=== PATIENT | female | born 1965 | race Two or more races ===

== ENCOUNTER 2018-12-30 16:52 | Inpatient (IN) | payer OTHER ==
[~2018-12-30] VITALS: Ht 152.4 cm; Wt 40.3 kg
[~2018-12-30 16:52] MED LIST: HYDR-3240 PO; INSU100C5 SQ; NABU500T PO; PREG50CA PO; ROSU10TA PO
--- NOTE | 2018-12-30 17:10 | NUR ---
PT A&OX4, RESP EVEN & UNLABORED, SPEECH CLEAR, SKIN WNL. C/O ABD + VOMITING COFFEE GROUND EMESIS. 200ML DARK ROSALES FLUID IN EMESIS BAG UPON ARRIVAL TO ED ROOM 26. PT REPORTS INTERMITTENT VOMITING FOR ABOUT 2 MONTHS; HAS SEEN GI DOCTOR. ENDOSCOPY & COLONOSCOPY "A COUPLE OF YEARS AGO".
--- NOTE | 2018-12-30 18:09 | NUR ---
DR MYERS BS FOR EXAM
[2018-12-30 18:27] LABS: GASTRIC OCCULT BLD POSITIVE (NEGATIVE); GASTRIC PH 2 (1-7)
[2018-12-30] MEDS ORDERED: SODIUM CHLORIDE FLUSH 10ML SYR IVF ONE (18:30)
[2018-12-30 18:31] LABS: BASOPHILS # (AUTO) 0.01 x10^3/uL (0-0.1); BASOPHILS % (AUTO) 0 % (0-1); EOSINOPHILS # (AUTO) 0.01 x10^3/uL (0-0.4); EOSINOPHILS % (AUTO) 0 % (1-7); LYMPHOCYTES # (AUTO) 1.36 x10^3/uL (1-3.4); LYMPHOCYTES % (AUTO) 10 % (22-44); MD NO; MEAN CORPUSCULAR HEMOGLOBIN 29.1 pg (27.0-34.8); MEAN CORPUSCULAR HGB CONC 33.4 g/dL (32.4-35.8); MEAN CORPUSCULAR VOLUME 87.2 fL (80-100); MEAN PLATELET VOLUME 7.2 fL (7.4-10.4); MONOCYTES # (AUTO) 0.13 x10^3/uL (0.2-0.8); MONOCYTES % (AUTO) 1 % (2-9); NEUTROPHILS # (AUTO) 11.79 x10^3/uL (1.8-6.8); NEUTROPHILS % (AUTO) 89 % (42-75); PLATELET COUNT 507 x10^3/uL (130-400); RED CELL DISTRIBUTION WIDTH 15.2 % (9.6-15.2)
[2018-12-30 18:42] LABS: INTERNATIONAL NORMALIZED RATIO 0.94 (0.93-1.1)
[2018-12-30 18:43] LABS: ALANINE AMINOTRANSFERASE 14 U/L (12-78); ALBUMIN 3.7 g/dL (3.4-5.0); ANION GAP 10 mmol/L (5-15); CALCIUM 9.1 mg/dL (8.5-10.1); CHLORIDE 104 mmol/L (98-107); CREATININE 0.53 mg/dL (0.55-1.02)
--- NOTE | 2018-12-30 18:43 | NUR ---
TASK RN: PT BACK FROM IMAGING.
[2018-12-30 18:45] LABS: ALKALINE PHOSPHATASE 147 U/L (45-117); BILIRUBIN,TOTAL 0.4 mg/dL (0.2-1.0); TOTAL PROTEIN 7.7 g/dL (6.4-8.2)
[2018-12-30] MEDS ORDERED: PANTOPRAZOLE 80 MG in SODIUM CHLORIDE 0.9% 50 ML IVPB ONE (18:49)
--- NOTE | 2018-12-30 18:59 | NUR ---
PT REPORT FROM KIMBERLEE BEEBE. PT CARE TO BE ASSUMED.
[2018-12-30] MEDS ORDERED: ONDANSETRON 2MG/ML, 2ML IVPush ONE (19:00)
--- NOTE | 2018-12-30 19:01 | NUR ---
TASK RN: BEDSIDE REPORT TO KIMBERLEE KASPER.
[2018-12-30] MEDS ORDERED: ONDANSETRON 2MG/ML, 2ML ONE (19:09)
--- NOTE | 2018-12-30 20:30 | NUR ---
TASK RN: THIS RN ANSWERED CALL LIGHT. PT REQUESTING WHEELCHAIR FOR TRANSPORT TO BATHROOM. PT DENIES DIZZINESS, REPORTS SOME NAUSEA. PT TRANSFERED SELF TO OWN WHEELCHAIR. PT TO RESTROOM WO ASSISTANCE. BED LINENS NOTABLY SOILED, REMOVED AND CLEAN LINENS PLACED. ALL USED EMESIS BAGS DISPOSED OF. PRIMARY RN, SANAM SUNG.
[2018-12-30] MEDS ORDERED: OXYcodone IR 5MG TABLET PO PRN (21:00)
[2018-12-30] MEDS ORDERED: ONDANSETRON ODT 4 MG PO PRN (21:00)
[2018-12-30] MEDS ORDERED: ONDANSETRON 2MG/ML, 2ML IVPush PRN (21:00)
[2018-12-30] MEDS ORDERED: hydrALAzine 20 MG/ML, 1ML IVPush PRN (21:00)
[2018-12-30] MEDS ORDERED: BISACODYL 10 MG SUPP PR PRN (21:00)
[2018-12-30] MEDS ORDERED: DOCUSATE 100 MG CAPSULE PO PRN (21:00)
[2018-12-30] MEDS ORDERED: PROMETHAZINE 25 MG/ML, 1ML IM PRN (21:00)
--- NOTE | 2018-12-30 21:17 | NUR ---
PT REPORT TO KIMBERLEE FERRERA FOR ROOM [id number]
[2018-12-30 21:21] LABS: HEMOGLOBIN A1C 13.3 % (4.2-6.3)
[2018-12-30] MEDS: SODIUM CHLORIDE 0.9% 1,000 ML IV SCH (21:26)
[2018-12-30] MEDS ORDERED: DILTIAZEM 5 MG/ML, 5ML IVPush ONE (21:30)
[2018-12-30 21:32] LABS: FREE T4 (FREE THYROXINE) 1.37 ng/dL (0.76-1.46); THYROID STIMULATING HORMONE 1.18 mIU/L (0.358-3.740)
[2018-12-30] MEDS: morphine SULFATE 10 MG/ML, 1ML IVPush PRN (23:55)
[2018-12-30] MEDS: PANTOPRAZOLE 80 MG in SODIUM CHLORIDE 0.9% 100 ML IV SCH (23:55)
[2018-12-31] MEDS: INSULIN LISPRO 100 UNITS/ML, PEN SQ-INSULIN SCH ×5 (00:03→22:22)
[2018-12-31 01:48] VITALS: BP 118/71
[2018-12-31 02:21] VITALS: BP 123/71
[2018-12-31] MEDS: morphine SULFATE 10 MG/ML, 1ML IVPush PRN (05:44)
[2018-12-31 06:04] LABS: CHLORIDE 114 mmol/L (98-107)
[2018-12-31 06:12] LABS: ALANINE AMINOTRANSFERASE 15 U/L (12-78); ALBUMIN 3.4 g/dL (3.4-5.0); ALKALINE PHOSPHATASE 120 U/L (45-117); ANION GAP 10 mmol/L (5-15); BILIRUBIN,TOTAL 0.4 mg/dL (0.2-1.0); CALCIUM 8.6 mg/dL (8.5-10.1); CHOL/HDL RATIO 6.5; CHOLESTEROL, TOTAL 324 mg/dL (140-239); HDL CHOL % 15 % (28-40); HDL CHOLESTEROL (DIRECT) 50 mg/dL (40-60); LDL CHOLESTEROL,CALCULATED 255 mg/dL (54-169); LDL/HDL RATIO 5.1 (0.5-3.0); TRIGLYCERIDES 97 mg/dL (50-200); VLDL CHOLESTEROL 19 mg/dL (0-25)
[2018-12-31 07:09] VITALS: BP 112/67
[2018-12-31] MEDS: SODIUM CHLORIDE 0.9% 1,000 ML IV SCH ×2 (07:45→16:27)
[2018-12-31] MEDS: PANTOPRAZOLE 80 MG in SODIUM CHLORIDE 0.9% 100 ML IV SCH ×2 (09:00→18:56)
[2018-12-31] MEDS: SENNA/DOCUSATE TABLET PO SCH (09:00)
[2018-12-31] MEDS ORDERED: OMNIPAQUE 350 MG/ML, 75ML BOTTLE ONE (12:03)
[2018-12-31 12:43] VITALS: BP 96/54
[2018-12-31] MEDS ORDERED: FENTANYL PF 100 MCG/2ML ONE (13:19)
[2018-12-31] MEDS ORDERED: MIDAZOLAM 1 MG/ML, 5ML ONE (13:19)
[2018-12-31 19:11] VITALS: BP 94/52
[2019-01-01 01:38] VITALS: BP 98/49
[2019-01-01] MEDS: PANTOPRAZOLE 80 MG in SODIUM CHLORIDE 0.9% 100 ML IV SCH (05:18)
[2019-01-01 07:50] VITALS: BP 94/55
[2019-01-01] MEDS: SENNA/DOCUSATE TABLET PO SCH (08:35)
[2019-01-01] MEDS: INSULIN LISPRO 100 UNITS/ML, PEN SQ-INSULIN SCH ×3 (08:35→17:11)
[2019-01-01] MEDS ORDERED: PANTOPROZOLE 40MG TABLET PO SCH (09:00)
[2019-01-01 13:12] VITALS: BP 95/55
[2019-01-01] MEDS ORDERED: METF500T PO (15:29)
[2019-01-01] MEDS ORDERED: INSU100I11 SQ-INSULIN (15:29)
[2019-01-01] MEDS ORDERED: PANT40TA5 PO (15:29)
[2019-01-01] MEDS ORDERED: ATOR40TA PO (15:30)
[2019-01-01] MEDS ORDERED: ERGO500017 PO (15:33)
== END 2019-01-01 18:45 | disposition home or self-care (01) | DRG 391 ==
LOC: ED 20:00 → EDIP 20:39 → 5SO 22:55
PROVIDERS: ADMIT Internal Medicine; ATTEND Internal Medicine
PROC: 0DJ68ZZ Inspection of Stomach, Via Natural or Artificial Opening Endoscopic (ICD-10-PCS; principal; 2018-12-31 13:32)
DX: K44.0 Diaphragmatic hernia with obstruction, without gangrene (principal); K25.4 Chronic or unspecified gastric ulcer with hemorrhage; G82.20 Paraplegia, unspecified; K64.3 Fourth degree hemorrhoids; E11.65 Type 2 diabetes mellitus with hyperglycemia; E78.5 Hyperlipidemia, unspecified; G89.29 Other chronic pain; K21.0 Gastro-esophageal reflux disease with esophagitis; K57.90 Diverticulosis of intestine, part unspecified, without perforation or abscess without bleeding; M41.9 Scoliosis, unspecified; M81.0 Age-related osteoporosis without current pathological fracture; R13.10 Dysphagia, unspecified; Z83.3 Family history of diabetes mellitus; Z86.12 Personal history of poliomyelitis; Z87.891 Personal history of nicotine dependence; K29.70 Gastritis, unspecified, without bleeding
CPT/HCPCS: 36415; 74021; 74177; 80053; 80061; 82271; 82306; 82607; 82962; 83036; 83735; 84100; 84439; 84443; 85014; 85018; 85025; 85610; 85730; 86850; 86900; 96365; 96375; 99285; G0378; J2250; J2405; J2550; J3010; Q9967; C9113; J1815; J2270; J7030

== ENCOUNTER → 2019-01-15 | Outpatient (CLI) | payer OTHER ==
[~2019-01-15] MED LIST changes: +ATOR40TA PO; +ATOR40TA78 PO; +ERGO500017 PO; +INSU100I11 SQ-INSULIN; +INSU100I18 SC; +METF500T PO; +METF500T17 PO; +PANT40TA5 PO; -ROSU10TA PO; +ROSU10TA2 PO; +[UNRECOGNIZED DRUG - OTHER] PO
== END | disposition home or self-care (01) ==
LOC: STAR 08:59
PROVIDERS: ATTEND Surgery
DX: Z01.818 Encounter for other preprocedural examination (principal)
CPT/HCPCS: 93005

== ENCOUNTER 2019-01-23 07:18 | Observation (INO) | payer OTHER ==
[2019-01-15 09:25] VITALS: BP 99/65
[~2019-01-23] VITALS: Ht 152.4 cm; Wt 40.0 kg
[2019-01-23] MEDS ORDERED: LACTATED RINGERS 1,000 ML IV SCH ×2 (07:51→15:00)
[2019-01-23] MEDS ORDERED: BUPIVACAINE/PF-EPI 0.5% 1:200K ONE (09:05)
[2019-01-23] MEDS ORDERED: LABETALOL 5MG/ML, 20ML IV PRN ×2 (09:30)
[2019-01-23] MEDS ORDERED: OXYcodone 5 MG/5 ML ORAL.SOL UDC PO PRN ×3 (09:30→15:00)
[2019-01-23] MEDS ORDERED: OXYcodone IR 5MG TABLET PO ONE (09:30)
[2019-01-23] MEDS ORDERED: METOCLOPRAMIDE 5 MG/ML, 2ML IVPush ONE (09:30)
[2019-01-23] MEDS ORDERED: FAMOTIDINE 20 MG/2 ML IVPush ONE (09:30)
[2019-01-23] MEDS ORDERED: MEPERIDINE/PF 25MG/0.5ML IVPush PRN ×2 (09:30)
[2019-01-23] MEDS ORDERED: MIDAZOLAM 1 MG/ML, 2ML IV PRN ×2 (09:30)
[2019-01-23] MEDS ORDERED: ONDANSETRON 2MG/ML, 2ML IVPush PRN ×2 (09:30)
[2019-01-23] MEDS ORDERED: FENTANYL PF 100 MCG/2ML IV PRN (09:30)
[2019-01-23] MEDS ORDERED: HYDROmorphone 1 MG/ML, 1ML IV PRN ×2 (09:30)
[2019-01-23] MEDS ORDERED: MIDAZOLAM 1 MG/ML, 2ML ONE (09:33)
[2019-01-23] MEDS ORDERED: FENTANYL PF 100 MCG/2ML ONE ×4 (09:33→13:09)
[2019-01-23 09:41] LABS: BASOPHILS # (AUTO) 0.03 x10^3/uL (0-0.1); BASOPHILS % (AUTO) 0 % (0-1); EOSINOPHILS # (AUTO) 0.16 x10^3/uL (0-0.4); EOSINOPHILS % (AUTO) 2 % (1-7); LYMPHOCYTES % (AUTO) 30 % (22-44); MD NO; MEAN CORPUSCULAR HEMOGLOBIN 28.4 pg (27.0-34.8); MEAN CORPUSCULAR HGB CONC 33.7 g/dL (32.4-35.8); MEAN CORPUSCULAR VOLUME 84.3 fL (80-100); MEAN PLATELET VOLUME 6.6 fL (7.4-10.4); MONOCYTES # (AUTO) 0.36 x10^3/uL (0.2-0.8); MONOCYTES % (AUTO) 5 % (2-9); NEUTROPHILS # (AUTO) 4.77 x10^3/uL (1.8-6.8); NEUTROPHILS % (AUTO) 63 % (42-75); PLATELET COUNT 436 x10^3/uL (130-400); RED BLOOD COUNT 3.85 x10^6/uL (3.82-5.3); RED CELL DISTRIBUTION WIDTH 15.4 % (9.6-15.2)
[2019-01-23] MEDS ORDERED: THROMBIN 5,000 UNIT VIAL TP ONE (10:20)
[2019-01-23] MEDS ORDERED: SUGAMMADEX 200 MG/2 ML IVPush ONE (12:11)
[2019-01-23] MEDS: FENTANYL PF 100 MCG/2ML IV PRN ×5 (12:38→13:11)
[2019-01-23] MEDS ORDERED: OXYcodone 5 MG/5 ML ORAL.SOL UDC ONE (12:52)
[2019-01-23] MEDS ORDERED: INSULIN SINGLE DOSE, ER SQ-INSULIN ONE (12:52)
[2019-01-23] MEDS ORDERED: INSULIN REGULAR 100 UNITS/ML, 3ML VIAL SQ-INSULIN ONE (13:00)
[2019-01-23] MEDS ORDERED: ENOXAPARIN 40 MG/0.4 ML SQ SCH (15:00)
[2019-01-23] MEDS ORDERED: ENTER SLIDING SCALE INSULIN IF ORDERED XX PRN (15:00)
[2019-01-23] MEDS ORDERED: LACTATED RINGERS 500 ML IV PRN (15:00)
[2019-01-23] MEDS ORDERED: ONDANSETRON 2MG/ML, 2ML IV PRN (15:00)
[2019-01-23] MEDS ORDERED: KETOROLAC 30 MG/1 ML IV PRN (15:00)
[2019-01-23] MEDS ORDERED: METOCLOPRAMIDE 5 MG/ML, 2ML ONE (15:35)
[2019-01-23] MEDS ORDERED: PROPOFOL 10 MG/ML, 20ML ONE (15:35)
[2019-01-23] MEDS ORDERED: PHENYLEPHRINE 10 MG/ML ONE (15:35)
[2019-01-23] MEDS ORDERED: DEXAMETHASONE 4 MG/ML, 1ML ONE (15:35)
[2019-01-23] MEDS ORDERED: ONDANSETRON 2MG/ML, 2ML ONE (15:35)
[2019-01-23] MEDS ORDERED: CEFAZOLIN 1,000 MG ONE (15:35)
[2019-01-23] MEDS ORDERED: ROCURONIUM 10 MG/ML,10ML ONE (15:35)
[2019-01-23] MEDS: IBUPROFEN 100 MG/5 ML UDC PO SCH (17:08)
[2019-01-23] MEDS: INSULIN LISPRO 100 UNITS/ML, PEN LOW DOSE SS SQ-INSULIN SCH ×2 (18:33→20:42)
[2019-01-23] MEDS: LACTATED RINGERS 1,000 ML IV SCH ×2 (18:33→20:37)
[2019-01-23 20:00] VITALS: BP 102/51
[2019-01-24] MEDS: IBUPROFEN 100 MG/5 ML UDC PO SCH ×2 (00:29→09:22)
[2019-01-24 02:15] VITALS: BP 98/67
[2019-01-24] MEDS: INSULIN LISPRO 100 UNITS/ML, PEN LOW DOSE SS SQ-INSULIN SCH (06:24)
[2019-01-24 07:57] VITALS: BP 91/58
[2019-01-24] MEDS ORDERED: ENOXAPARIN 40 MG/0.4 ML SQ SCH (08:00)
[2019-01-24] MEDS ORDERED: PLEASE ENTER ALLERGIES MC SCH (09:00)
[2019-01-24] MEDS ORDERED: ACET-1600 PO (09:56)
[2019-01-24] MEDS ORDERED: IBUP200T49 PO (09:57)
[2019-01-24] MEDS ORDERED: OXYC5CAP2 PO (09:58)
== END 2019-01-24 10:55 | disposition home or self-care (01) ==
LOC: OUT 07:18 → 4NOR 13:52 → 4EST 16:01 → 4NOR 16:08 → OUT 16:08 → DCLOUNGE 01-24 10:36
PROVIDERS: ADMIT Surgery; ATTEND Surgery
DX: K44.9 Diaphragmatic hernia without obstruction or gangrene (principal); E11.9 Type 2 diabetes mellitus without complications; Z86.12 Personal history of poliomyelitis
CPT/HCPCS: 43282; 82962; 85025; 96372; C1760; G0378; J0690; J1100; J1650; J1815; J2250; J2370; J2405; J2704; J2765; J3010; J3490; J7120; Q4116